=== PATIENT | female | born 1960 | race African-American/Black ===

== ENCOUNTER 2021-09-18 08:43 | Outpatient (CLI) | payer MEDICARE, SELFPAY ==
--- NOTE | ~2021-09-18 | MR_ITS ---
EXAMINATION: MR lower leg RT wo/w con DATE: 09/18/2021 10:09 INDICATION: Soft tissue mass and pain at the right lower leg TECHNIQUE: Magnetic resonance imaging (MRI) of the right lower leg was performed without and with 20 mL Multihance intravenous contrast. A marker was placed over the mass. Sequences included axial, sag ittal and coronal T1-weighted FSE and fluid sensitive FSE STIR. Precontrast axial T1-weighted FS FSE and post contrast axial, sagittal and coronal T1-weighted FS FSE were also obtained. The contralatera l left lower leg is included on the coronal images. COMPARISON: None. 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 Assessme nt of the region of the ankle joint is somewhat limited by decreased signal and distortion Resulting from magnetic nichols artifact at the margins of the field of imaging. There is linear low T 1 and high T2 signal at the posterior medial aspect of the right tibial plafond. 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 Bone marrow signal is otherwise normal throughout. No acute fractur e or pathologic marrow replacing process. There is epimysial edema surrounding the medial head of the gastrocnemius muscle with additional feathery muscular edema surrounding a 3 x 1.5 x 0.7 cm likely f luid collection along the medial margin of the proximal Achilles myotendinous junction of the medial head of the gastrocnemius muscle with partial tear of the tendon at this location. Remaining muscles and tendons the visualized portions of the lower leg are unremarkable. Diffuse mild subcutaneous camille a at the the right calf and minimal at the left calf. IMPRESSION: 1. Moderate grade strain/partial tear involving the medial side of the Achilles myotendinous junction of the medial head of the gastrocnemius. Reviewed, dictated and finalized at location A.
[2021-09-18 09:17] LABS: Estimated Glomerular Filt Rate > 60
== END 2021-09-18 08:44 | disposition home or self-care (01) ==
PROVIDERS: PCP Internal Medicine; Visit Provider Internal Medicine
DX: M79.661 Pain in right lower leg (principal)
CPT/HCPCS: 73720; A9577